=== PATIENT | female | born 1940 | race African-American/Black ===

== ENCOUNTER 2022-01-27 15:46 | Emergency (ER) | payer MEDICARE ==
[~2022-01-27] VITALS: Ht 154.9 cm; Wt 74.8 kg
[2022-01-27 15:50] VITALS: BP 130/76
--- NOTE | 2022-01-27 15:56 | NUR ---
PT WC ASSISTED TO LOBBY
[2022-01-27 17:38] LABS: BASOPHILS # (AUTO) 0.1 K/uL (0.00-0.22); BASOPHILS % (AUTO) 1.3 % (0.0-2.0); EOSINOPHILS % (AUTO) 0.2 % (0.0-4.0); HEMATOCRIT 41.3 % (36-48); HEMOGLOBIN 13.3 g/dL (12.0-16.0); LYMPHOCYTES # (AUTO) 1.4 K/uL (2.5-16.5); LYMPHOCYTES % (AUTO) 27.9 % (20.5-51.1); MEAN CORPUSCULAR HEMOGLOBIN 27 pg (27-31); MEAN CORPUSCULAR HGB CONC 32 g/dL (33-37); MEAN CORPUSCULAR VOLUME 85.2 fL (80-94); MONOCYTES # (AUTO) 0.4 K/uL (0.8-1.0); NEUTROPHILS # (AUTO) 3.1 K/uL (1.8-7.7); NEUTROPHILS % (AUTO) 61.6 % (42.2-75.2); PLATELET COUNT (AUTO) 229 K/uL (140-450); RED BLOOD CELL COUNT(AUTO) 4.85 MIL/uL (4.20-5.40); RED CELL DISTRIBUTION WIDTH 15.3 % (11.6-13.7)
--- NOTE | 2022-01-27 18:06 | NUR ---
PT TO ER BED 3 VIA W/C
[2022-01-27 18:07] LABS: ALBUMIN 3.4 g/dL (3.4-5.0); ANION GAP 14.2 (8-16); ASPARTATE AMINOTRANSFERASE 29 U/L (15-37); CARBON DIOXIDE 30.4 mmol/L (21-32); CHLORIDE 101 mmol/L (98-107); CREATININE 0.7 mg/dL (0.6-1.3); GLUCOSE 87 mg/dL (74-106); POTASSIUM 3.6 mmol/L (3.5-5.1); SODIUM SERUM 142 mmol/L (136-145); TOTAL BILIRUBIN 0.4 mg/dL (0.0-1.0); UREA NITROGEN, BLOOD 18 mg/dL (7-18)
[2022-01-27] MEDS ORDERED: NACL 0.9% 1,000 ML IV ONE (18:30)
--- NOTE | 2022-01-27 18:32 | NUR ---
PATIENT PRESENTS TO ED WITH SYNCOPE . PT'S DAUGHTER STATES SHE WAS ACTING WEIRD ALL DAY AND FAINTED IN THE MORNING. DENIES N/V/D; SKIN IS WARM/DRY; AAOX4 WITH EVEN AND STEADY GAIT; LUNGS CLEAR BL; HR EVEN AND REGULAR; PT DENIES ANY FEVER, CP, SOB, OR COUGH AT THIS TIME; PATIENT STATES PAIN OF 0/10 AT THIS TIME; VSS; PATIENT POSITIONED FOR COMFORT; HOB ELEVATED; BEDRAILS UP X2; BED DOWN. ER MD MADE AWARE OF PT STATUS. H/S: alzheimer's MEDS: DENIES ALLERGIES: DENIES NOTED BY ZACH PRITCHARD RN
--- NOTE | 2022-01-27 19:35 | NUR ---
Patient resting comfortably in bed, A/Ox4, chest rise and fall symmetrical, no s/s of distress.
--- NOTE | 2022-01-27 20:45 | NUR ---
Two attempts by two RNs to start IV, unsuccessful. Patient's daughter and patient requested to "not administer IV fluid medication" order and go home.
[2022-01-27 21:10] VITALS: BP 132/85
--- NOTE | 2022-01-27 21:11 | NUR ---
Patient discharged with v/s stable. Written and verbal after care instructions given and explained. Patient verbalized understanding. Ambulatory with steady gait. All questions addressed prior to discharge. Advised to follow up with PMD.
== END 2022-01-27 21:10 | disposition home or self-care (01) ==
LOC: MED 15:46
DX: R55 Syncope and collapse (principal)
CPT/HCPCS: 36415; 70450; 80053; 84484; 85025; 93005; 99285